=== PATIENT | female | born 1935 | race Caucasian/White ===

== ENCOUNTER 2022-04-22 14:30 | Outpatient (CLI) | payer MEDICARE, OTHER ==
--- NOTE | 2022-04-22 18:39 | XRAY Report ---
PROCEDURE: Foot 3 View BILAT INDICATIONS: BL FOOT PAIN TECHNIQUE: 3 views of the foot were acquired. 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 Generalized decreased osseous mineraliza tion Soft tissues: No tibiotalar joint effusion. Achilles tendon appears normal. 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
== END 2022-04-22 14:31 | disposition home or self-care (01) ==
LOC: DI 14:30
PROVIDERS: ATTEND Podiatrist
DX: M19.071 Primary osteoarthritis, right ankle and foot (principal); M19.072 Primary osteoarthritis, left ankle and foot